=== PATIENT | female | born 1965 | race American Indian/Alaskan Native ===

== ENCOUNTER 2019-08-10 09:38 | Emergency (ER) | payer OTHER ==
[2019-08-10 09:54] VITALS: BMI 26.2
[2019-08-10] MEDS ORDERED: morphine CARPU-JECT 4 MG/1 ML DISP.SYRIN IVPUSH ONE ×2 (10:40→16:19)
[2019-08-10] MEDS ORDERED: ONDANSETRON 4 MG/2 ML VIAL IVPUSH ONE ×2 (10:40→16:19)
[2019-08-10] MEDS ORDERED: SODIUM CHLORIDE 1,000 ML IV STA ×2 (10:41→15:05)
[2019-08-10] MEDS ORDERED: MORPHINE SULFATE 2 MG/ML VIAL ONE (10:45)
[2019-08-10] MEDS ORDERED: ONDANSETRON 4 MG/2 ML VIAL ONE ×2 (10:46→16:22)
--- NOTE | 2019-08-10 11:14 | PDOC ---
History of Present Illness - General Chief Complaint: Nausea/Vomiting Stated Complaint: ABD. PAIN Time Seen by Provider: 08/10/19 10:22 History Source: Patient Exam Limitations: No Limitations - History of Present Illness Initial Comments: 08/10/19 10:41 Ms Casiano is a 54 yo F who presents to the ER with her daughter due to nausea , vomiting and abdominal pain PT was found to have a rectal cancer in October of 2016 s/p polyp resection Apparently it was not all removed and pt is s/p colorectal surgery January 2017 which was complicated by multiple infections, transected ureter, s/p nephrostomy tube and peñaloza cathether for 1 year. Pt now s/p repair of ureter. Follow up imaging revealed lesions in the kidney and pt is also s/p radiofrequency ablation of these lesions. She was started on chemotherapy ( unsure the names, one is IV the other is a pill) and completed the course of these medications in June 2019. Pt presents to the ER with a complaint of diffuse abdominal pain which is intermittently waxing and waning, currently 6-7/10, associated with nausea and vomiting. Pt is unable to tolerate po (last meal was evening - broccoli and rice). No fevers or chills Pt has been passing flatus, last normal bowel movement 3 days ago No abdominal distention No recent travel No ill contacts Pt is a vegetarian - no undercooked meat or shellfish PMH: hypoparathyroidism, rectal cancer PSH: C section, colorectal surgery, ureter repair Meds: please see MAR ALL: Ibuprofen --> itching Social: denies alcohol, drug, cigarette use FH:non contributory ROS: GENERAL/CONSTITUTIONAL: Yes: loss of appetite No: fever, chills, weakness. HEAD, EYES, EARS, NOSE AND THROAT: No: change in vision, ear pain, discharge, sore throat, throat swelling. CARDIOVASCULAR: No: chest pain, lightheadedness, palpitations, syncope RESPIRATORY: No: cough, shortness of breath, wheezing, hemoptysis, stridor. GASTROINTESTINAL: Yes: nausea, vomiting, abdominal cramping GENITOURINARY: No: dysuria, hematuria, frequency, urgency, flank pain. MUSCULOSKELETAL: No: back pain, neck pain, joint pain, muscle swelling or pain SKIN: No: lesions, pallor, rash or easy bruising. NEUROLOGIC: No: headache, vertigo, paresthesias, weakness ENDOCRINE: No: unexplained weight gain or loss HEMATOLOGIC/LYMPHATIC: No: anemia, easy bleeding, swelling nodes. PE: GENERAL: The patient is in no acute distress. HEAD: Normal EYES: PERRLA, EOMI, sclera anicteric, conjunctiva clear. ENT: Ears normal, nares patent, oropharynx clear without exudates. Dry mucous membranes. NECK: Normal range of motion, supple LUNGS: Breath sounds equal, clear to auscultation bilaterally. No wheezes, and no crackles. HEART:Regular rate and rhythm, normal S1 and S2 without murmur, rub or gallop. ABDOMEN: Soft, diffusely tender to palpation, no distention, no involuntary guarding, no rebound EXTREMITIES: Normal range of motion, no edema. No clubbing or cyanosis. No erythema, or tenderness. NEUROLOGICAL: Cranial nerves II through XII grossly intact. Normal speech. No focal neurological deficits. MUSCULOSKELETAL: Back non-tender to palpation SKIN: Warm, Dry, normal turgor, no rashes or lesions noted. 08/10/19 11:14 08/10/19 11:15 Past History - Past Medical History Allergies/Adverse Reactions: Allergies Allergy/AdvReac Type Severity Reaction Status Date / Time ibuprofen Allergy Verified 08/10/19 09:54 Home Medications: Ambulatory Orders Lisinopril [Prinivil] 20 mg PO DAILY 01/13/15 Albuterol Sulfate Inhaler - [Ventolin HFA Inhaler -] 1 puff IH PRN 11/25/16 Cetirizine HCl [Zyrtec -] 10 mg PO DAILY 11/25/16 Montelukast Sodium [Singulair] 10 mg PO DAILY 08/10/19 Pregabalin [Lyrica] 25 mg PO BID 08/10/19 Trazodone HCl 150 mg PO PRN 08/10/19 Asthma: Yes Cancer: Yes (rectal) COPD: No HTN: Yes Psychiatric Problems: Yes (depression, anxiety) Other medical history: uncontrolled pain - Suicide/Smoking/Psychosocial Hx Smoking Status: No Smoking History: Never smoked Have you smoked in the past 12 months: No Number of Cigarettes Smoked Daily: 0 Hx Alcohol Use: No Drug/Substance Use Hx: No Substance Use Type: None Hx Substance Use Treatment: No *Physical Exam - Vital Signs Last Vital Signs Temp Pulse Resp BP Pulse Ox 98.3 F 108 H 18 145/90 99 08/10/19 09:51 08/10/19 09:51 08/10/19 09:51 08/10/19 09:51 08/10/19 09:51 ED Treatment Course - LABORATORY CBC & Chemistry Diagram: 08/10/19 11:00 08/10/19 11:00 Medical Decision Making - Critical Care Time Total Critical Care Time (minutes): 60 Critical Care Statement: The care of this patient involved high complexity decision making to prevent further life threatening deterioration of the patient 's condition and/or to evaluate & treat vital organ system(s) failure or risk of failure. - Medical Decision Making 08/10/19 11:14 54 yo F presenting with a complaint of nausea, vomiting and abdominal pain DD: SBO, Ileus, gastritis, biliary pathology Will do: Labs CT IVF/Zofran/Morphine Re Assess 08/10/19 11:26 Laboratory Tests 08/10/19 11:00 WBC 3.5 L Hgb 12.1 Hct 36.1 Plt Count 159 D Twelve-lead EKG was performed and reviewed by me. There is normal sinus rhythm with a normal rate. The axis is normal. The intervals are normal. There are no ST or T wave abnormalities. Impression: Normal twelve-lead EKG Laboratory Tests 08/10/19 08/10/19 08/10/19 11:00 11:00 11:00 WBC 3.5 L Hgb 12.1 Hct 36.1 Plt Count 159 D Sodium 139 Potassium 4.2 Chloride 104 Carbon Dioxide 26 BUN 14.5 Creatinine 0.7 Est GFR (CKD-EPI)NonAf 96.86 Total Bilirubin 1.1 H AST 53 H ALT 39 Creatine Kinase 53 Troponin I < 0.02 Total Amylase 66 Lipase 246 08/10/19 14:[address] read 08/10/19 14:16 08/10/19 15:58 CT demonstrates: 1) dilated mildly thickened small bowel loops within the right lateral abdomen 2) Mesenteric edema as well as a small amount of mesenteric fluid 3) 3.3 x 1.2 cm oval -shaped smoothly marginated low attenuation structure seen in the anterior segment of the right hepatic lobe 4) stable left UPJ obstruction Pt given copies of these results and I have reviewed all findings with patient and daughter. I have explained that the liver lesion will need follow up as I do not have a prior CT for comparison 08/10/19 15:[address] Bravo. She will not accept this patient for admission unless seen by the surgeon Case reviewed with Dr. Blakely. He will not consult on this patient as she has an SBO from complex operations done at an outside hospital I have explained this to the patient She is refusing to go to [facility] Case reviewed with Dr. Case at [facility] 08/10/19 16:01 Pt complained of more pain Morphine and Zofran ordered NGT in place 08/10/19 16:04 Pt accepted for transfer to [facility] Clinical impression: Small Bowel obstruction *DC/Admit/Observation/Transfer Diagnosis at time of Disposition: Small bowel obstruction - Discharge Dispostion Disposition: TRANSFER ACUTE CARE/OTHER HOSP Condition at time of disposition: Stable Decision to Admit order: No - Referrals Referrals: Keila Galeana MD [Primary Care Provider] - - Patient Instructions - Post Discharge Activity - Transfer to Acute Care Facility Receiving Facility: [facility]. Accepting Physician:: Dr. Case
[2019-08-10 11:17] LABS: BASO % 1.1 % (0-2.0); EOS % 0.5 % (0-4.5); HEMATOCRIT 36.1 % (32.4-45.2); HEMOGLOBIN 12.1 GM/dL (10.7-15.3); LYMPH % 20.3 % (8-40); MCH 32.4 pg (25.7-33.7); MCHC 33.5 g/dl (32.0-36.0); MEAN CELL VOLUME 96.8 fl (80-96); MEAN PLT VOLUME 7.4 fl (7.5-11.1); MONO % 14.7 % (3.8-10.2); NEUT % 63.4 % (42.8-82.8); PLATELET COUNT 159 K/MM3 (134-434); RBC 3.73 M/mm3 (3.60-5.2); RDW 22.7 % (11.6-15.6); WHITE BLOOD COUNT 3.5 K/mm3 (4.0-10.0)
[2019-08-10 12:07] LABS: ALBUMIN 3.5 g/dl (3.4-5.0); BILIRUBIN,TOTAL 1.1 mg/dL (0.2-1); BLOOD UREA NITROGEN 14.5 mg/dL (7-18); CALCIUM 10.6 mg/dL (8.5-10.1); CREATININE 0.7 mg/dL (0.55-1.3); POTASSIUM 4.2 mmol/L (3.5-5.1); TOT PROT 7.7 g/dl (6.4-8.2)
[2019-08-10 14:06] VITALS: TEMP 98.4
[2019-08-10 14:14] LABS: EPI CELLS 1.8 /HPF (0-5/HPF); HYALINE CASTS 6 /lpf (0-8); URINE APPEARANCE CLEAR; URINE BACTERIA 6990.7 /hpf (NEGATIVE); URINE BILIRUBIN NEGATIVE (NEGATIVE); URINE COLOR YELLOW; URINE GLUCOSE (UA) NEGATIVE (NEGATIVE); URINE KETONE 1+ (NEGATIVE); URINE LEUK ESTERASE TRACE (NEGATIVE); URINE NITRITE POSITIVE (NEGATIVE); URINE PROTEIN NEGATIVE (NEGATIVE); URINE RBC 1 /hpf (0-4); URINE UROBILINOGEN 0.2 mg/dL (0.2-1.0); URINE WBC 9 /hpf (0-5)
--- NOTE | 2019-08-10 14:52 | EKG ---
Test Reason : Blood Pressure : / mmHG Vent. Rate : 074 BPM Atrial Rate : 074 BPM P-R Int : 176 ms QRS Dur : 068 ms QT Int : 406 ms P-R-T Axes : 062 052 055 degrees QTc Int : 450 ms NORMAL SINUS RHYTHM NORMAL ECG WHEN COMPARED WITH ECG OF 25-NOV-2016 18:10, NO SIGNIFICANT CHANGE WAS FOUND Confirmed by MD MONTERO MOYSES ([id number]) on 08/10/2019 2:52:35 PM Referred By: Confirmed By:ML MONTERO MD
[2019-08-10] MEDS ORDERED: morphine SULFATE 4 MG/ML VIAL ONE (16:22)
[2019-08-10 17:17] VITALS: BP 146/92; PULSE 92
== END 2019-08-10 17:17 | disposition short-term general hospital (02) ==
LOC: JER 09:38
PROC: 3E0337Z Introduction of Electrolytic and Water Balance Substance into Peripheral Vein, Percutaneous Approach (ICD-10-PCS; principal; 2019-08-10)
PROC: 3E033NZ Introduction of Analgesics, Hypnotics, Sedatives into Peripheral Vein, Percutaneous Approach (ICD-10-PCS; 2019-08-10)
PROC: 3E033NZ Introduction of Analgesics, Hypnotics, Sedatives into Peripheral Vein, Percutaneous Approach (ICD-10-PCS; 2019-08-10)
PROC: 3E033GC Introduction of Other Therapeutic Substance into Peripheral Vein, Percutaneous Approach (ICD-10-PCS; 2019-08-10)
PROC: 3E033GC Introduction of Other Therapeutic Substance into Peripheral Vein, Percutaneous Approach (ICD-10-PCS; 2019-08-10)
DX: K56.699 Other intestinal obstruction unspecified as to partial versus complete obstruction (principal); Z98.890 Other specified postprocedural states; I10 Essential (primary) hypertension; J45.909 Unspecified asthma, uncomplicated; F41.9 Anxiety disorder, unspecified; F32.9 Major depressive disorder, single episode, unspecified; Z85.048 Personal history of other malignant neoplasm of rectum, rectosigmoid junction, and anus
CPT/HCPCS: 36415; 74018-TC-FY; 74177-TC; 80053; 81003; 82150; 82550; 83605; 83690; 84484; 85025; 87086; 87186; 93005; 93010; 96360; 96361; 96374; 96375; 96376; 99285-25; J7030